=== PATIENT | male | born 1985 | race Caucasian/White ===

== ENCOUNTER → 2024-01-11 07:25 | Outpatient (REF) | payer BC, SELFPAY | LOC: HWRAD 07:25 | PROVIDERS: ATTENDING PHYSICIAN Surgery; FAMILY PHYSICIAN Family Medicine | DX: N20.0 Calculus of kidney (principal) | CPT/HCPCS: 76775 ==

== ENCOUNTER → 2024-04-13 10:00 | Outpatient (REF) | payer BC, SELFPAY | LOC: CLAB 10:00 | PROVIDERS: ATTENDING PHYSICIAN Surgery | DX: Z30.2 Encounter for sterilization (principal) | CPT/HCPCS: 88302 ==

== ENCOUNTER 2024-08-11 06:09 | Day surgery (SDC) | payer BC, SELFPAY ==
[2024-08-11] VITALS (12 sets, daily range): BP systolic 123–142; BP diastolic 85–104; BMI 32.8
[2024-08-11] MEDS: NORMOSOL-R/PLASMALYTE-A 1000 IV (08:00)
[2024-08-11] MEDS: ROXICODONE 5 MG PO (11:00)
== END 2024-08-11 11:40 | disposition home or self-care (01) ==
LOC: SDS 06:09
PROVIDERS: ATTENDING PHYSICIAN Otolaryngology
DX: J32.0 Chronic maxillary sinusitis (principal); J34.3 Hypertrophy of nasal turbinates; J34.1 Cyst and mucocele of nose and nasal sinus
CPT/HCPCS: 31267; 30140; 88304; 88311

== ENCOUNTER 2024-10-24 16:17 | Emergency (ER) | payer BC, SELFPAY ==
[2024-10-24 16:29] VITALS: BP 139/92
[2024-10-24 18:05] VITALS: BP 133/88
[2024-10-24 18:06] VITALS: BMI 34.7
[2024-10-24 19:10] VITALS: BP 133/84
--- NOTE | 2024-10-24 22:11 | ED.MUSCINJ ---
HPI-Injury
General
Chief Complaint: Musculo-Skeletal Complaint
Source: patient
Exam Limitations: none
Time Seen by Provider: 10/24/24 17:44
Nursing documentation reviewed up to this point in time: agreed with
History of Present Illness-Injury
Is this injury a work related problem?: No
Is pt an associate of [facility]?: No
Initial Injury comments:
Patient to ED with complaint of pain to left foot plantar surface from heel to toes. Symptoms started approx 4 days ago. No history of trauma. Denies fever/chlls, recent illness. Brought self to ED for eval.
Past History
Past History
ED Past Medical History: Negative HTN
ED Past Surgical History: Urological
Social History
Tobacco: Non-smoker
Alcohol: None
Drug: None
Personal: Other (Noncontributory)
Living: with family
Employment: Employed
Family History
Family History: Other (Noncontributory)
Review of Systems
Review of Systems
Allergies reviewed?: Yes
All Other Systems: ROS reviewed and negative except as documented in HPI and ROS
Constitutional: Reports no symptoms
EENT: Reports no symptoms
Respiratory: Reports no symptoms
Cardiac: Reports no symptoms
ABD/GI: Reports no symptoms
Musculoskeletal: Reports joint pain (pain plantar surface left foot)
Skin: Reports no symptoms
Neurological: Reports no symptoms
Psychiatric: Reports no symptoms
Musculoskeletal Injury Exam
Musculoskeletal Injury Exam
Left Plantar Foot:
Pain with Movement?: Moderate
Tender to palpation?: Moderate
Soft tissue swelling?: None
External deformity and angulation?: None
Joint effusion?: None
Contusion?: None
Hematoma-local bleeding into tissue?: None
Crepitus with movement?: No
Joint instability?: No
Malalignment/deformity?: No
Range of motion: Full
Distal skin color and temperature: normal-warm & good color
Capillary Refill: normal
Normal distal neurovascular exam?: Yes
Peripheral Pulses: posterior tibial (left): 3+ and dorsalis pedis (left): 3+
Phy Exam
General Physical Exam
General Presentation: well appearing and no apparent distress
General age: appears stated age
General Skin: warm and dry
General Habitus: normal
General Mental: alert
Musculoskeletal Exam
Musculoskeletal Exam: full ROM, neuro vasc intact and other (achilles intact)
Skin Exam
Skin Exam: normal color, warm/dry and no rash
Psychiatric Exam
Psychiatric Exam: normal mood/affect
Injury Course
Orders/Labs/Results
Orders:
Orders
10/24/24 16:33
US Periph Venous LOWER Ext LT Urgent
Comment:
Reason For Exam: calf pain; recent travel
10/24/24 19:22
Foot, Left 3 View [CR Foot - Left Min 3 Views] Urgent
Comment:
Reason For Exam: plantar pain
10/24/24 20:48
Ortho Boot Left- Treatment ONCE
Short or tall?: Short
*Radiology
Radiology exam reviewed: radiology read reviewed
*Pulse Oximetry
Patient hypoxic: no
*Critical Care Note
Total Time (30-74mins, 75-104mins- exclusive of procedures): Not Applicable
ED Attending Note
-
Portions of this chart may have been created with voice recognition software.� Occasional wrong word or��sound alike� substitutions may have occurred due to the inherent limitations of voice recognition software.
Discharge Plan
Departure
Patient Disposition: Home (Routine Discharge)
Date of Disposition: 10/24/24
Time of Disposition: 20:39
Patient with high blood pressure during this ER visit?: No
Condition: Good
Covid-19: Not Applicable
Discharge Problem:
Acute foot pain
Instructions: Plantar fasciitis, Ibuprofen, Exercises for plantar fasciitis
Prescriptions:
No Action
No Current Medications
0
Referrals:
Raymond Reed DPM [Specified Professional Personl] - Call in 1-3 days for appt
Raymond Laughlin MD [Family Provider] -
Interventions
Interventions:
*Risk Screen - Suicide Last Done: 10/24/24 16:29
*General Assessment Last Done: 10/24/24 16:29
*Neglect/Abuse Screening Last Done: 10/24/24 16:29
*ED- Fall Risk Assessment Last Done: 10/24/24 18:00
*ED COVID-19 Vaccine History Last Done: 10/24/24 16:29
*Nursing Disposition Last Done: 10/24/24 21:20
ED-Musculoskeletal Assessment Last Done: 10/24/24 18:00
Discharge Date and Time
Discharge Date/Time: 10/24/24 21:21
Print Language: GEORGIAN
== END 2024-10-24 21:21 | disposition home or self-care (01) ==
LOC: EMR 16:17
PROVIDERS: EMERGENCY PHYSICIAN Emergency Medicine; FAMILY PHYSICIAN Family Medicine
DX: M79.672 Pain in left foot (principal); M79.605 Pain in left leg; Z88.1 Allergy status to other antibiotic agents
CPT/HCPCS: 99284; 73630; 93971